=== PATIENT | female | born 1990 | race Hispanic/Latino ===

== ENCOUNTER 2020-07-12 14:39 | Emergency (ER) | payer SELFPAY ==
[2020-07-12 15:58] LABS: Bilirubin Negative (Negative); Blood, Urine Negative (Negative); Clarity Clear (Clear); Glucose, Urine (Dipstick) Normal (Negative); Ketone, Urine Negative (Negative); Leukocyte 250 Leu/uL (Negative); Nitrite Negative (Negative); Protein, Urine (Dipstick) Negative (Neg-Trace); RBC/HPF 0-3 HPF (0-3); Specific Gravity, Urine 1.021 (1.002-1.036); Squamous Epithelial 0-3 HPF (0-3); Urobilinogen Normal mg/dL (Less than 2)
[2020-07-12 15:59] LABS: Bacteria/HPF 1+ HPF (None Seen)
[2020-07-12 16:00] LABS: Pregnancy Test - Urine (BHCG) Negative (Negative); Pregu Control Background? CLEAR/WHITE (CLR/WHITE); Pregu Control Bar Appear? YES (CONTROL BAR); Specific Gravity 1.021 (1.002-1.036)
[2020-07-12] MEDS ORDERED: Azithromycin 250 MG TAB ONE (16:14)
[2020-07-12] MEDS ORDERED: cefTRIAXone\\ROCEPHIN 500 MG VIAL ONE (16:14)
[2020-07-12] MEDS ORDERED: Lidocaine 1% PF 5 ML VIAL ONE (16:15)
[2020-07-15 18:46] LABS: Chlamydia by PCR Not Detected (NotDetected); GC by PCR Not Detected (NotDetected)
== END 2020-07-12 17:50 | disposition home or self-care (01) ==
LOC: ERS 14:39
DX: N76.0 Acute vaginitis (principal)
CPT/HCPCS: 81003; 81015; 81025; 87480; 87491; 87510; 87591; 87660; 96372; 99284; J0696